=== PATIENT | male | born 1990 | race Hispanic/Latino ===

== ENCOUNTER 2022-03-04 11:41 | Emergency (ER) | payer OTHER, SELFPAY ==
--- OUTSIDE RECORDS SUMMARY | 2022-03-04 11:43 | XMS REPORT | Continuity of Care Document ---
:1990 Author Organization [facility] Address [address] [place] [address] Dr. Sandy [address] [place] [id number] Care Team Providers Name Role Phone MELISSA Attending Clinician Unavailable Payers Payer Name Policy Type Policy Number Effective Date Expiration Date [employer] [id number] 2018 2020 NON-CONTRACT 00:00:00 00:00:00 GENERIC Problems This patient has no known problems. Allergies, Adverse Reactions, Alerts Allergy Allergy Status Severity Reaction(s) Onset Inactive Treating Comm ents Source Name Type Date Date Clinician NO KNOWN Drug Active [facility] ALLERGIE Class [facility] Medications This patient has no known medications. Procedures This patient has no known procedures. Encounters Start End Encounter Admission Attending Care Care Encounter Source Date/Time Date/Time Type Type Clinicians Facility Department ID 2021-07-05 2021-07-[address] [facility] [id number] [facility] 13:00:00 13:00:00 [id number] [facility] 2021-07-05 2021-07-[address] [facility] [id number] Univers 13:00:00 13:00:00 ANJU [facility] Results This patient has no known results.
[2022-03-04] MEDS ORDERED: dexAMETHasone 10 MG/ML VIAL ONE (12:11)
[2022-03-04] MEDS ORDERED: ONDANSETRON 4 MG/2 ML VIAL ONE (12:12)
[2022-03-04] MEDS ORDERED: MEPERIDINE HCL 25 MG/ML SYR ONE ×2 (12:12→13:41)
[2022-03-04] MEDS ORDERED: KETOROLAC 30 MG/ML INJ ONE (12:12)
--- NOTE | 2022-03-04 13:38 | EDPHYS ---
Physician Documentation [facility] Name: Kirby Redman Age: 31 yrs Sex: Male : 1990 Arrival Date: 03/04/2022 Time: 11:42 Bed 24 Private MD: Ortiz Mcnulty ED Physician Norman Casas HPI: 03/04 12:38 This 31 yrs old Male presents to ER via Ambulatory with complaints of Back rn Pain. 12:41 The patient presents with pain that is acute, with no known mechanism of injury. The rn symptoms are located in the thoracic area. Onset: The symptoms/episode began/occurred this morning. The pain does not radiate. Associated signs and symptoms: The patient has no apparent associated signs or symptoms, Pertinent negatives: abdominal pain, chest pain, fever, headache, hematuria, incontinence, nausea, numbness, tingling, urinary retention, vomiting, weakness. Modifying factors: The patient symptoms are alleviated by remaining still, the patient symptoms are aggravated by bending, movement, walking. Severity of symptoms: At their worst the symptoms were moderate, in the emergency department the symptoms are unchanged. The patient has experienced similar episodes in the past. The patient has not recently seen a physician. Reports bent over earlier today, felt sudden pain in upper back/neck, no fall or direct trauma. No focal neurological complaint. No chest or abd pain. Has had back problems like this before but was in lower back. Hurts to turn head/move/lift arms/twist. . Historical: - Allergies: 11:49 No Known Allergies; jl7 - Home Meds: 11:49 Zoloft Oral [Active]; gabapentin oral [Active]; jl7 - PMHx: 11:49 Depressive disorder; jl7 - PSHx: 11:49 None; jl7 - Immunization history:: Client reports having NOT received the Covid vaccine. - Social history:: Smoking status: Patient denies any tobacco usage or history of. - Family history:: not pertinent. - Hospitalizations: : No recent hospitalization is reported. ROS: 12:41 Constitutional: Negative for fever, chills, and weight loss, Eyes: Negative for injury, rn pain, redness, and discharge, Neck: Negative for injury, and swelling, Cardiovascular: Negative for chest pain, palpitations, and edema, Respiratory: Negative for shortness of breath, cough, wheezing, and pleuritic chest pain, Abdomen/GI: Negative for abdominal pain, nausea, vomiting, diarrhea, and constipation, Back: Negative for injury and pain, : Negative for injury, bleeding, discharge, and swelling, MS/Extremity: Negative for injury and deformity, Skin: Negative for injury, rash, and discoloration, Neuro: Negative for headache, weakness, numbness, tingling, and seizure. Exam: 12:41 Constitutional: This is a well developed, well nourished patient who is awake, alert, rn holding head still and appears in pain, ambulatory to room without assistance or difficulty. Head/Face: Normocephalic, atraumatic. Eyes: Periorbital areas with no swelling, redness, or edema. Neck: Trachea midline, no masses palpated, and no cervical lymphadenopathy. + pain with turning head in either direction, no crepitus. Cardiovascular: Regular rate and rhythm. No pulse deficits. Respiratory: No increased work of breathing, no retractions or nasal flaring. Abdomen/GI: Soft, non-tender Back: No spinal tenderness. No costovertebral tenderness. No focal swelling or mass Skin: Warm, dry MS/ Extremity: Pulses equal, no cyanosis. Neuro: Awake and alert, GCS 15, oriented to person, place, time, and situation. Cranial nerves II-XII grossly intact. Motor strength 5/5 in all extremities. Sensory grossly intact. Cerebellar exam normal. Normal gait. Vital Signs: 11:47 BP 142 / 102; Pulse 93; Resp 15; Temp 98.4; Pulse Ox 98% ; Weight 72.57 kg; Height 5 jl7 ft. 3 in. (160.02 cm); Pain 9/10; 12:04 BP 161 / 106; Pulse 84; Resp 16; Temp 98; Pulse Ox 100% ; Weight 72.57 kg; Height 5 ft. zm 3 in. (160.02 cm); 12:33 BP 151 / 98; Pulse 71; Resp 16; Pulse Ox 100% on R/A; Pain 7/10; ss 13:42 BP 110 / 74; Pulse 84; Resp 16; Pulse Ox 100% on R/A; ss 13:52 BP 120 / 88; Pulse 72; Resp 15; Pulse Ox 100% on R/A; Pain 4/10; ss 12:04 Body Mass Index 28.34 (72.57 kg, 160.02 cm) zm MDM: 11:51 Patient medically screened. rn 13:36 Differential diagnosis: arthritis, Ligament Injury Osteoarthritis sprain, torticollis. rn Data reviewed: vital signs, nurses notes, and as a result, I will discharge patient. Counseling: I had a detailed discussion with the patient and/or guardian regarding: the historical points, exam findings, and any diagnostic results supporting the discharge/admit diagnosis, the need for outpatient follow up, to return to the emergency department if symptoms worsen or persist or if there are any questions or concerns that arise at home. Response to treatment: the patient's symptoms have mildly improved after treatment, and as a result, I will discharge patient. Special discussion: I discussed with the patient/guardian in detail that at this point there is no indication for admission to the hospital. It is understood, however, that if the symptoms persist or worsen the patient needs to return immediately for re-evaluation. Further emergent ED testing is not indicated at this point in time. I discussed with the patient/guardian in detail the need to arrange with the PCP or specialist further outpatient testing, MRI, Based on the history and exam findings, there is no indication for further emergent testing or inpatient evaluation. I discussed with the patient/guardian the need to see the back specialist for further evaluation of the symptoms. ED course: Pt feels better, improved ROM of neck, will dc home with muscle relaxer and steroids with return precautions. . 03/04 12:00 Order name: IV Start; Complete Time: 12:29 rn Administered Medications: 12:12 Drug: Zofran (Ondansetron) 4 mg Route: IVP; Site: right antecubital; ss 13:41 Follow up: Response: No adverse reaction ss 12:14 Drug: Decadron - Dexamethasone 10 mg Route: IVP; Site: right antecubital; ss 13:41 Follow up: Response: No adverse reaction ss 12:17 Drug: Ketorolac 30 mg Route: IVP; Site: right antecubital; ss 13:41 Follow up: Response: No adverse reaction; Pain is decreased ss 12:22 Drug: Demerol (meperidine) 25 mg Route: IVP; Site: right antecubital; ss 13:41 Follow up: Response: No adverse reaction; Pain is decreased ss 13:41 Drug: Demerol (meperidine) 25 mg {Note: RASS 0.} Route: IVP; Site: right antecubital; ss 13:54 Follow up: Response: No adverse reaction; Pain is decreased ss Disposition Summary: 03/04/22 13:37 Discharge Ordered Location: Home rn Problem: new rn Symptoms: have improved rn Condition: Stable rn Diagnosis - Strain of muscle, fascia and tendon at neck level, initial encounter rn - Spasmodic torticollis rn Followup: rn - With: Private Physician - When: As needed - Reason: Recheck today's complaints, Re-evaluation by your physician Discharge Instructions: - Discharge Summary Sheet rn - Acute Torticollis, Adult rn - Cervical Strain and Sprain Rehab-SportsMed rn Forms: - Medication Reconciliation Form rn - Thank You Letter rn - Antibiotic nurse extern - Prescription Opioid Use rn - Work release form ss Prescriptions: - Cyclobenzaprine 10 mg Oral Tablet - take 1 tablet by ORAL route every 8 hours As needed; 15 tablet; Refills: 0, rn Product Selection Permitted - Medrol (Tobi) 4 mg Oral Tablets, Dose Pack - take 1 tablet by ORAL route as directed - follow package instructions; 1 rn packet; Refills: 0, Product Selection Permitted Signatures: Norman Casas MD MD rn Smirch, Shelby, RN RN Brady Tidwell RN RN jl7
--- NOTE | 2022-03-04 13:38 | ER ---
Nurse's Notes [facility] Name: Kirby Redman Age: 31 yrs Sex: Male : 1990 Arrival Date: 03/04/2022 Time: 11:42 Bed 24 Private MD: Ortiz Mcnulty Diagnosis: Strain of muscle, fascia and tendon at neck level, initial encounter;Spasmodic torticollis Presentation: 03/04 11:47 Chief complaint: Patient states: Reports mid back pain, radiates up to neck and out to jl7 shoulders, reports bending over to put shoes on and that's when it happened. Coronavirus screen: At this time, the client does not indicate any symptoms associated with coronavirus-19. Ebola Screen: No symptoms or risks identified at this time. Initial Sepsis Screen: Does the patient meet any 2 criteria? No. Patient's initial sepsis screen is negative. Does the patient have a suspected source of infection? No. Patient's initial sepsis screen is negative. Risk Assessment: Do you want to hurt yourself or someone else? Patient reports no desire to harm self or others. Onset of symptoms was March 04, 2022. 11:47 Method Of Arrival: Ambulatory jl7 11:47 Acuity: KARLA 4 jl7 Triage Assessment: 11:49 General: Appears in no apparent distress. uncomfortable, Behavior is calm, cooperative, jl7 appropriate for age. Pain: Complains of pain in mid back area Pain radiates to left trapezius, right trapezius, left scapular area, right scapular area and thoracic area Pain currently is 9 out of 10 on a pain scale. Musculoskeletal: Swelling absent. Historical: - Allergies: 11:49 No Known Allergies; jl7 - Home Meds: 11:49 Zoloft Oral [Active]; gabapentin oral [Active]; jl7 - PMHx: 11:49 Depressive disorder; jl7 - PSHx: 11:49 None; jl7 - Immunization history:: Client reports having NOT received the Covid vaccine. - Social history:: Smoking status: Patient denies any tobacco usage or history of. - Family history:: not pertinent. - Hospitalizations: : No recent hospitalization is reported. Screenin:30 Abuse screen: Denies threats or abuse. Denies injuries from another. Nutritional ss screening: No deficits noted. Tuberculosis screening: Never had TB. Fall Risk None identified. Assessment: 12:30 General: Appears uncomfortable, Behavior is calm, cooperative, Denies fever, feeling ss ill, fatigue, chills. Neuro: Level of Consciousness is awake, alert, obeys commands, Oriented to person, place, time, situation. Cardiovascular: Capillary refill < 3 seconds is brisk in bilateral fingers Patient's skin is warm and dry. Respiratory: Airway is patent Respiratory effort is even, unlabored, Respiratory pattern is regular, symmetrical. GI: Patient currently denies diarrhea, nausea, vomiting. EENT: Nares are clear Oral mucosa is moist. Derm: Skin is intact, is healthy with good turgor, Skin is dry, Skin is pink, warm \T\ dry. normal. Musculoskeletal: Circulation, motion, and sensation intact. Range of motion: intact in all extremities, Swelling absent. 13:42 Reassessment: Patient appears in no apparent distress at this time. Patient and/or ss family updated on plan of care and expected duration. Pain level reassessed. Pt reports that pain is 7/10. Better, but only minimally. Pt appears comfortable. at bedside. Demerol administered as ordered. 13:52 Reassessment: Patient appears in no apparent distress at this time. Patient and/or ss family updated on plan of care and expected duration. Pain level reassessed. Patient is alert, oriented x 3, equal unlabored respirations, skin warm/dry/pink. Patient states feeling better. Patient states symptoms have improved. Vital Signs: 11:47 BP 142 / 102; Pulse 93; Resp 15; Temp 98.4; Pulse Ox 98% ; Weight 72.57 kg; Height 5 jl7 ft. 3 in. (160.02 cm); Pain 9/10; 12:04 BP 161 / 106; Pulse 84; Resp 16; Temp 98; Pulse Ox 100% ; Weight 72.57 kg; Height 5 ft. zm 3 in. (160.02 cm); 12:33 BP 151 / 98; Pulse 71; Resp 16; Pulse Ox 100% on R/A; Pain 7/10; ss 13:42 BP 110 / 74; Pulse 84; Resp 16; Pulse Ox 100% on R/A; ss 13:52 BP 120 / 88; Pulse 72; Resp 15; Pulse Ox 100% on R/A; Pain 4/10; ss 12:04 Body Mass Index 28.34 (72.57 kg, 160.02 cm) zm ED Course: 11:42 Patient arrived in ED. as 11:42 Ortiz Mcnulty MD is Private Physician. as 11:49 Triage completed. jl7 11:49 Arm band placed on right wrist. jl7 11:51 Norman Casas MD is Attending Physician. rn 12:03 Savanah Marques RN is Primary Nurse. ss 12:15 Inserted saline lock: 20 gauge in right antecubital area, using aseptic technique. ss 12:30 Patient has correct armband on for positive identification. Bed in low position. Call ss light in reach. Side rails up X2. Pulse ox on. NIBP on. 13:52 No provider procedures requiring assistance completed. IV discontinued, intact, ss bleeding controlled, No redness/swelling at site. Pressure dressing applied. Administered Medications: 12:12 Drug: Zofran (Ondansetron) 4 mg Route: IVP; Site: right antecubital; ss 13:41 Follow up: Response: No adverse reaction ss 12:14 Drug: Decadron - Dexamethasone 10 mg Route: IVP; Site: right antecubital; ss 13:41 Follow up: Response: No adverse reaction ss 12:17 Drug: Ketorolac 30 mg Route: IVP; Site: right antecubital; ss 13:41 Follow up: Response: No adverse reaction; Pain is decreased ss 12:22 Drug: Demerol (meperidine) 25 mg Route: IVP; Site: right antecubital; ss 13:41 Follow up: Response: No adverse reaction; Pain is decreased ss 13:41 Drug: Demerol (meperidine) 25 mg {Note: RASS 0.} Route: IVP; Site: right antecubital; ss 13:54 Follow up: Response: No adverse reaction; Pain is decreased ss Outcome: 13:37 Discharge ordered by . rn 13:53 Discharged to home ambulatory, with significant other. ss 13:53 Condition: good 13:53 Discharge instructions given to patient, family, Instructed on discharge instructions, follow up and referral plans. Demonstrated understanding of instructions, follow-up care, medications, Prescriptions given X 2. 13:53 Patient left the ED. ss Signatures: Richa Naik as Casas, Norman, Savanah Orourke MD, rn, RN RN ss Brady Ryan RN RN jl7 Santa Naik Corrections: (The following items were deleted from the chart) 13:42 13:41 Demerol (meperidine) 25 mg IVP in right antecubital ss ss
[2022-03-04 14:53] VITALS: TEMP 98; O2SAT 100
[2022-03-04 14:57] VITALS: BP 120/88
== END 2022-03-04 13:53 | disposition home or self-care (01) ==
LOC: ER 11:41
DX: S16.1XXA Strain of muscle, fascia and tendon at neck level, initial encounter (principal); G24.3 Spasmodic torticollis; X50.1XXA Overexertion from prolonged static or awkward postures, initial encounter; Y93.89 Activity, other specified; Y92.019 Unspecified place in single-family (private) house as the place of occurrence of the external cause; F32.A Depression, unspecified
CPT/HCPCS: 96374; 96375; 99284; J1100; J2175; J2405